=== PATIENT | male | born 1985 | race African-American/Black ===

== ENCOUNTER 2024-05-24 19:59 | Emergency (ER) | payer MEDICAID ==
[~2024-05-24] VITALS: Ht 182.9 cm; Wt 125.0 kg
[~2024-05-24 19:59] MED LIST: ASPI-1497 MT; ATOR20TA MT; DILT30TA37 MT; METO-385 PO
[2024-05-24 20:19] VITALS: O2SAT 99
[2024-05-24] MEDS: METOPROLOL SUCCINATE 50MG ER TABLET PO STA (21:10)
[2024-05-24] MEDS: DILTIAZEM HCL 30MG TABLET PO ONE (21:10)
[2024-05-24 21:37] LABS: BASOPHILS % 0.9 % (0.0-2.0); DIFFERENTIAL COMMENT 0; EOSINOPHILS % 2.2 % (0.0-5.0); HEMATOCRIT. 38.4 % (42.0-52.0); HEMOGLOBIN. 12.6 g/dL (14.0-18.0); LYMPHOCYTES % 32.3 % (20.0-50.0); MEAN CORPUSCULAR HEMOGLOBIN 25.7 pg (28.0-32.0); MEAN CORPUSCULAR HGB CONC 32.7 g/dL (31.0-37.0); MEAN CORPUSCULAR VOLUME 78.7 fL (80.0-94.0); MEAN PLATELET VOLUME 7.2 fl (7.4-10.4); MONOCYTES % 7.3 % (2.0-8.0); NEUTROPHILS % 57.3 % (40.0-76.0); PLATELET 310 x1000/uL (130-400); RED BLOOD CELL COUNT 4.88 mill/uL (4.7-6.1); RED CELL DISTRIBUTION WIDTH 16.9 % (11.6-14.6); WHITE BLOOD COUNT 7.2 x1000/uL (4.5-11.0)
[2024-05-24 21:43] LABS: CHLORIDE 107 mEq/L (98-107); POTASSIUM 3.9 mEq/L (3.5-5.1); SODIUM 139 mEq/L (136-145)
[2024-05-24 21:44] LABS: CARBON DIOXIDE 24 mEq/L (21-32)
[2024-05-24 21:45] LABS: CALCIUM 9.3 mg/dL (8.7-10.4)
[2024-05-24 21:50] LABS: GLUCOSE 92 mg/dL (70-105); UREA NITROGEN BLOOD 11 mg/dL (9-23)
[2024-05-24 21:51] LABS: ALANINE AMINOTRANSFERASE 15 IU/L (10-49); ASPARTATE AMINOTRANSFERASE 19 IU/L (<34)
[2024-05-24 21:52] LABS: BILIRUBIN DIRECT 0.2 mg/dL (<=3.0); BILIRUBIN TOTAL 0.6 mg/dL (0.1-1.0); PROTEIN TOTAL 6.9 g/dL (6.0-8.3)
[2024-05-24 21:57] LABS: TROPONIN I HIGH SENSITIVITY < 4 ng/L (3.0-53)
[2024-05-24 22:21] LABS: INR 0.9; PROTHROMBIN TIME 10.6 sec (9.6-11.0)
[2024-05-24 23:39] VITALS: BP 156/97; PULSE 78; RESP 20; TEMP 36.72516; O2SAT 99
== END 2024-05-24 23:40 | disposition home or self-care (01) ==
LOC: ER 19:59
DX: I10 Essential (primary) hypertension (principal); I51.7 Cardiomegaly; E78.00 Pure hypercholesterolemia, unspecified; Z79.82 Long term (current) use of aspirin; Z79.899 Other long term (current) drug therapy
CPT/HCPCS: 36415; 71045; 80048; 80076; 84484; 85025; 99284